=== PATIENT | female | born 1965 | race Caucasian/White ===

== ENCOUNTER → 2017-05-31 | Outpatient (CLI) | payer OTHER ==
[~2017-05-31] MED LIST: ARTIFICIAL TEAR15 M1 OPHTHALMIC; BENADRYL25 MG PO; BYSTOLIC 5 MG5 M1 PO; HYDROCHLOROTH12.5 M1 PO; HYDROCODON-ACE1 EAC7 PO; IBUPROFEN 800800 M1 PO; MINOCIN100 MG PO; NORCO 5-325 TA1 EACH PO; PREDNISONE 10 M10 MG PO; TESSALON PERLE100 MG PO
== END ==
LOC: M.ULTRA 05-22 16:43
DX: K76.0 Fatty (change of) liver, not elsewhere classified (principal); N64.4 Mastodynia; N28.1 Cyst of kidney, acquired; R92.8 Other abnormal and inconclusive findings on diagnostic imaging of breast; Z78.0 Asymptomatic menopausal state; Z90.49 Acquired absence of other specified parts of digestive tract

== ENCOUNTER 2017-10-19 08:14 | Inpatient (IN) | payer OTHER ==
[~2017-10-19] VITALS: Ht 157.5 cm; Wt 74.8 kg
[~2017-10-19 08:14] MED LIST changes: -ARTIFICIAL TEAR15 M1 OPHTHALMIC; -BENADRYL25 MG PO; -HYDROCODON-ACE1 EAC7 PO; -IBUPROFEN 800800 M1 PO; -MINOCIN100 MG PO; -PREDNISONE 10 M10 MG PO
[2017-10-19 08:18] VITALS: BP 139/56
[2017-10-19 10:04] LABS: ABSOLUTE BASOPHILS 0.1 thou/uL (0.0-0.2); ABSOLUTE EOSINOPHILS 0.2 thou/uL (0.0-0.7); ABSOLUTE LYMPHOCYTES 1.8 thou/uL (0.8-5.3); ABSOLUTE MONOCYTES 0.7 thou/uL (0.0-1.2); ABSOLUTE NEUTROPHILS 7.6 thou/uL (1.6-8.1); BASOPHILS 0.7 %; EOSINOPHILS 2.2 %; HEMATOCRIT 45.3 % (37.0-47.0); HEMOGLOBIN 15.5 gm/dL (12.0-15.0); MCH 29.7 pg (26.0-34.0); MCHC 34.3 g/dL (28.0-37.0); MCV 86.4 fL (80.0-100.0); MONOCYTES 6.6 %; MPV 8.3 fl. (7.2-11.1); NUCLEATED RBCS 0 /100WBC; PLATELET COUNT* 239 thou/uL (150-400); POLYS 73.5 %; RBC 5.24 mil/uL (4.20-5.00); RDW-CV 13.3 % (10.5-14.5); WBC 10.4 thou/uL (4.0-11.0)
[2017-10-19 10:22] LABS: CALCIUM 9.6 mg/dL (8.5-10.1); CREATININE 0.9 mg/dL (0.6-1.3); POTASSIUM 3.3 mmol/L (3.5-5.1)
[2017-10-19 10:27] LABS: ALBUMIN 4.8 g/dL (3.4-5.0); TOTAL BILIRUBIN 0.7 mg/dL (<0.1-1.0); TOTAL PROTEIN 8.1 g/dL (6.4-8.2)
[2017-10-19 10:59] VITALS: BP 131/63
[2017-10-19 13:36] LABS: CALCIUM 9.5 mg/dL (8.5-10.1); CREATININE 1.1 mg/dL (0.6-1.3); MAGNESIUM 1.5 mg/dL (1.8-2.4); POTASSIUM 3.2 mmol/L (3.5-5.1)
[2017-10-19 15:45] VITALS: BP 138/69
[2017-10-19 21:00] VITALS: BP 129/63
[2017-10-19 23:07] LABS: HEPATITIS B SURFACE AG Negative (Negative)
[2017-10-20] VITALS: BP 147/75
[2017-10-20 03:31] VITALS: BP 128/70
[2017-10-20 04:42] LABS: HEMATOCRIT 39.4 % (37.0-47.0); MCH 29.5 pg (26.0-34.0); MCHC 34.2 g/dL (28.0-37.0); MCV 86.3 fL (80.0-100.0); MPV 8.9 fl. (7.2-11.1); RBC 4.57 mil/uL (4.20-5.00); RDW-CV 13.4 % (10.5-14.5)
[2017-10-20 04:47] LABS: HEMOGLOBIN 13.5 gm/dL (12.0-15.0)
[2017-10-20 06:55] LABS: ALBUMIN 3.6 g/dL (3.4-5.0); CALCIUM 8.5 mg/dL (8.5-10.1); CREATININE 0.8 mg/dL (0.6-1.3); MAGNESIUM 1.2 mg/dL (1.8-2.4); POTASSIUM 3.5 mmol/L (3.5-5.1); TOTAL BILIRUBIN 0.7 mg/dL (<0.1-1.0); TOTAL PROTEIN 6.2 g/dL (6.4-8.2)
[2017-10-20 08:00] VITALS: BP 139/71
--- NOTE | 2017-10-20 10:45 | CON ---
[address] [address] CONSULTATION Name: SANDER PIEDRA Room: [address] ADM IN M.R.#: [id number] Admission: 10/19/17 Attend Phys: Julio Cesar Jesus, Discharge: Date of : 69 Report #: [id number] THIS REPORT FOR: //name// CC: Thao Villalpando Julio Cesar Jesus DATE OF SERVICE: 10/19/2017 TYPE OF REPORT: Infectious disease consultation ATTENDING PHYSICIAN: Julio Cesar Jesus M.D. REASON FOR EVALUATION: Periorbital cellulitis. HISTORY OF PRESENT ILLNESS: Chart reviewed, the patient examined. This 52-year-old woman without significant medical history, who woke middle of the night with complaints of discomfort in her right eye. She did rub it because it "felt weird." She has looked in the mirror and noted there were some periorbital swelling. She does describe some degree of discomfort and now has a burning pain, which she in part attributes to the marked discomfort. She was evaluated and recommended heat and ice alternating, continued to progress to the point where she has her eye swollen shut. It is ____ she has any fevers. She did admit to some kind of chills and perhaps sweats. Denies pulmonary or gastrointestinal related complaints. She was given a variety of things in the Emergency Room including epinephrine, corticosteroids, Benadryl. She was started empirically on therapy with vancomycin and ceftriaxone. ALLERGIES: To PENICILLIN, which causes urticaria; SULFA, causes urticaria; and LATEX. CURRENT MEDICATIONS: Include vancomycin, ceftriaxone, enoxaparin, hydrochlorothiazide. PAST MEDICAL HISTORY: Includes hypertension, hyperlipidemia and lower extremity edema. SOCIAL HISTORY: Nonsmoker. No ethanol. FAMILY HISTORY: Noncontributory. REVIEW OF SYSTEMS: As above. PHYSICAL EXAMINATION: GENERAL: She is alert, cooperative and appropriate. She appears generally well nourished. She is not in significant distress. VITAL SIGNS: Temperature 97.1, pulse 90, respirations 16 [place] [address] CONSULTATION Name: DOROTHEASANDER Room: [address] IN [facility]#: [id number] Admission: 10/19/17 Attend Phys: Julio Cesar Jesus, Discharge: Date of : 69 Report #: [id number] 131/63. SKIN: Warm and dry. No rashes. HEENT: Remarkable for marked periorbital edema. She does have some contused areas, particularly the upper eyelid, maybe indicative of hemolytic type strep infection. This extends several centimeters around the extent of her eye, is quite tender. There is no evident fluctuance. No oral issues or dental issues. NECK: Supple. LUNGS: Clear to auscultation. HEART: Regular. I do not appreciate any murmur. ABDOMEN: Soft, nontender and nondistended. EXTREMITIES: No cyanosis. GENITOURINARY: Deferred. RECTAL: Deferred. LABORATORY DATA: Lactic acid elevated at 4.7. Electrolytes: Sodium 139, potassium 3.2, chloride 101, bicarbonate 26, BUN and creatinine 15 and 1.1 and glucose of 198. Estimated GFR of 53. Liver functions are elevated as well with ALT of 94 and AST of 56. CBC: White count of 10.4, H and H 15.5 and 45.3 and platelets of 239. RADIOLOGICAL DATA: CT of the facial bones showed periorbital eyelid and facial soft tissue swelling with extension to the frontal region, left maxilla and no distinct loculated fluid collection. ASSESSMENT: ____ skin and soft tissue infection with cellulitis. At this point, would continue empiric antistaphylococcal and streptococcal therapy. Can exclude an intermittent injury such as puncture or bug bite, etc., presumed that lack of toxicity is certainly favorable and noted she did not really respond to all the treatment for hypersensitivity type reaction, must be somewhat unusual given the unilateral aspect, more of a localized. Continue some warm moist heat. Discussed with the patient's spouse. <ELECTRONICALLY SIGNED> By: Paresh Mckeon MD 10/20/17 1045 1429 [id number] Mckeon MD /nt
[2017-10-20 15:49] VITALS: BP 135/77
[2017-10-20 20:15] VITALS: BP 143/61
[2017-10-21 00:14] VITALS: BP 147/61
[2017-10-21 04:09] VITALS: BP 149/79
[2017-10-21 04:50] LABS: HEMATOCRIT 38.3 % (37.0-47.0); MCH 29.7 pg (26.0-34.0); MCHC 34.1 g/dL (28.0-37.0); MCV 87.3 fL (80.0-100.0); RBC 4.38 mil/uL (4.20-5.00); RDW-CV 13.8 % (10.5-14.5)
[2017-10-21 05:00] LABS: ALBUMIN 3.3 g/dL (3.4-5.0); CALCIUM 8.3 mg/dL (8.5-10.1); CREATININE 0.8 mg/dL (0.6-1.3); MAGNESIUM 1.8 mg/dL (1.8-2.4); POTASSIUM 3.8 mmol/L (3.5-5.1); TOTAL BILIRUBIN 0.6 mg/dL (<0.1-1.0); TOTAL PROTEIN 5.9 g/dL (6.4-8.2)
[2017-10-21 10:06] VITALS: BP 139/70; BP 95/46
[2017-10-21 16:05] VITALS: BP 150/77
[2017-10-21 20:50] VITALS: BP 145/68
[2017-10-22 04:00] VITALS: BP 137/70
[2017-10-22 08:00] VITALS: BP 144/57
[2017-10-22 12:53] LABS: URINE BILIRUBIN NEGATIVE (Negative); URINE BLOOD NEGATIVE (Negative); URINE CLARITY CLEAR; URINE COLOR YELLOW; URINE GLUCOSE-RANDOM NEGATIVE (Negative); URINE KETONES NEGATIVE (Negative); URINE LEUKOCYTES-REFLEX NEGATIVE (Negative); URINE NITRITE-REFLEX NEGATIVE (Negative); URINE PROTEIN NEGATIVE (Negative); URINE UROBILINOGEN 0.2 E.U./dl (0.2-1.0)
[2017-10-22 16:13] LABS: IgA 80 mg/dL (87-352); IgG 590 mg/dL (700-1600); IgM 52 mg/dL (26-217)
[2017-10-22 16:39] VITALS: BP 136/59
[2017-10-22 20:00] VITALS: BP 134/67
[2017-10-23 15:43] VITALS: BP 155/71
[2017-10-24] MEDS ORDERED: HYDROCODON-ACE1 EAC7 PO (11:23)
[2017-10-24] MEDS ORDERED: PREDNISONE 10 M10 MG PO (11:23)
--- NOTE | 2017-10-24 12:07 | EKG ---
[place] [address] ELECTROCARDIOGRAM REPORT Name: SANDER PIEDRA Room: [address] ADM IN .R.#: [id number] Admission: 10/19/17 Attend Phys: Julio Cesar Jesus, Discharge: Date of : 69 Report #: [id number] THIS REPORT FOR: //name// [facility] Test Date: 2017-10-24 Test Time: 09:25:24 Pat Name: SANDER PIEDRA Department: Room: [address] Gender: F Trouble Clerk: : 1965 Requested By: Brannon Hooper Order Number: [id number] MD: Walter Tucker Measurements Intervals [place] Rate: 47 P: 27 [place]: 131 QRS: 22 QRSD: 96 T: 28 QT: 482 QTc: 427 Interpretive Statements Sinus bradycardia Abnormal inferior Q waves Compared to ECG 07/15/2008 09:35:13 Sinus tachycardia no longer present Electronically Signed On 10-24-2017 12:07:05 CDT by Walter Tucker [email or web address] <ELECTRONICALLY SIGNED> By: Walter Tucker MD, [facility] 10/24/17 1207 4 4 Walter Tucker MD, FAC /EPI
[2017-10-24] MEDS ORDERED: BENADRYL25 MG PO (14:06)
[2017-10-24] MEDS ORDERED: IBUPROFEN 800800 M1 PO (14:10)
[2017-10-24] MEDS ORDERED: ARTIFICIAL TEAR15 M1 OPHTHALMIC (14:15)
[2017-10-24] MEDS ORDERED: MINOCIN100 MG PO (14:16)
[2017-10-24 14:23] VITALS: BP 155/71
[2017-10-24 14:46] VITALS: BP 155/71
[2017-10-24 16:59] VITALS: BP 155/71
== END 2017-10-24 15:00 | disposition home or self-care (01) | DRG 603 ==
LOC: M.ERS 08:14 → M.ORTHSURG 09:50 → M.TBA-ER 09:50 → M.ORTHSURG 11:05
PROVIDERS: Personal Emergency Response Attendant; Specialist; ADMIT Family Medicine
DX: L03.213 Periorbital cellulitis (principal); E87.2 Acidosis; R65.10 Systemic inflammatory response syndrome (SIRS) of non-infectious origin without acute organ dysfunction; I10 Essential (primary) hypertension; E78.5 Hyperlipidemia, unspecified; E87.6 Hypokalemia; E66.9 Obesity, unspecified; E83.42 Hypomagnesemia; T38.0X5A Adverse effect of glucocorticoids and synthetic analogues, initial encounter; Y92.89 Other specified places as the place of occurrence of the external cause; Z23 Encounter for immunization; Z68.30 Body mass index [BMI] 30.0-30.9, adult; Z79.899 Other long term (current) drug therapy; Z88.0 Allergy status to penicillin; Z88.2 Allergy status to sulfonamides; Z91.040 Latex allergy status

== ENCOUNTER 2018-08-21 18:34 | Emergency (ER) | payer OTHER ==
[~2018-08-21] VITALS: Ht 157.5 cm; Wt 74.8 kg
[~2018-08-21 18:34] MED LIST changes: +ARTIFICIAL TEAR15 M1 OPHTHALMIC; +BENADRYL25 MG PO; +HYDROCODON-ACE1 EAC7 PO; +IBUPROFEN 800800 M1 PO; +MINOCIN100 MG PO; +PREDNISONE 10 M10 MG PO
[2018-08-21] MEDS ORDERED: KLOR-CON 1010 MEQ PO (18:46)
[2018-08-21] MEDS ORDERED: AUGMENTIN 875-1 EACH PO (18:46)
[2018-08-21 18:59] LABS: ABSOLUTE BASOPHILS 0.1 thou/uL (0.0-0.2); ABSOLUTE EOSINOPHILS 0.4 thou/uL (0.0-0.7); ABSOLUTE MONOCYTES 0.7 thou/uL (0.0-1.2); ABSOLUTE NEUTROPHILS 4.7 thou/uL (1.6-8.1); BASOPHILS 1.1 %; HEMATOCRIT 41.7 % (37.0-47.0); HEMOGLOBIN 14.5 gm/dL (12.0-15.0); LYMPHOCYTES 33.9 %; MCH 30.1 pg (26.0-34.0); MCHC 34.7 g/dL (28.0-37.0); MCV 86.5 fL (80.0-100.0); MONOCYTES 7.9 %; MPV 8.5 fl. (7.2-11.1); NUCLEATED RBCS 0 /100WBC; PLATELET COUNT* 226 thou/uL (150-400); POLYS 53.1 %; RBC 4.82 mil/uL (4.20-5.00); RDW-CV 13.3 % (10.5-14.5); WBC 8.8 thou/uL (4.0-11.0)
[2018-08-21 19:07] LABS: ANION GAP 8 mmol/L (7-16); BUN 14 mg/dL (7-18); CALCIUM 9.3 mg/dL (8.5-10.1); CHLORIDE 104 mmol/L (98-107); CO2 30 mmol/L (21-32); CREATININE 0.7 mg/dL (0.6-1.3); GLUCOSE 109 mg/dL (70-99); POTASSIUM 4.5 mmol/L (3.5-5.1); SODIUM 142 mmol/L (136-145)
[2018-08-21 19:19] LABS: APTT 21.8 Seconds (25.0-31.3); INR 0.9; PROTIME 9.4 Seconds (9.20-11.50)
[2018-08-21 19:20] LABS: ALBUMIN 3.9 g/dL (3.4-5.0); ALKALINE PHOSPHATASE 80 U/L (46-116); CK-MB MASS 1.3 ng/mL (<0.5-3.6); LIPASE 543 U/L (73-393); MAGNESIUM 1.8 mg/dL (1.8-2.4); NT-PRO BRAIN NAT PEPTIDE 150 pg/mL (<300); SGOT 39 U/L (15-37); SGPT 92 U/L (30-65); TOTAL BILIRUBIN 0.2 mg/dL (<0.1-1.0); TOTAL PROTEIN 6.8 g/dL (6.4-8.2); TROPONIN-I LEVEL <0.06 ng/mL (<0.06)
[2018-08-21] MEDS ORDERED: VALIUM2 MG PO (22:24)
[2018-08-21 23:18] VITALS: BP 115/69
--- NOTE | 2018-08-22 17:11 | EKG ---
[place] [address] ELECTROCARDIOGRAM REPORT Name: SANDER PIEDRA Room: [facility]#: [id number] Admission: 08/21/18 Attend Phys: Discharge: 08/21/18 Date of : 69 Report #: [id number] THIS REPORT FOR: //name// [facility] ED Test Date: 2018-08-21 Test Time: 18:40:35 Pat Name: SANDER PIEDRA Department: Room: Gender: F Hair Clipper Power: [facility] : 1965 Requested By: Raj Bonilla Order Number: [id number] MD: Cristopher Walker Measurements Intervals [place] Rate: 62 P: -1 [place]: 149 QRS: 2 QRSD: 78 T: 9 QT: 420 QTc: 427 Interpretive Statements Sinus rhythm Low voltage, precordial leads Abnormal R-wave progression, early transition Compared to ECG 10/24/2017 09:25:24 Low QRS voltage now present Sinus bradycardia no longer present Inferior Q waves no longer present Q waves no longer present Electronically Signed On 08-22-2018 17:11:39 CDT by Cristopher Walker [email or web address] <ELECTRONICALLY SIGNED> By: Cristopher Walker MD, FACC 08/22/18 1711 1840 1840 Cristopher Walker MD, FAC /EPI
== END 2018-08-21 23:18 | disposition home or self-care (01) ==
LOC: M.ERS 18:34
PROVIDERS: Family Medicine
DX: K85.90 Acute pancreatitis without necrosis or infection, unspecified (principal); R42 Dizziness and giddiness; E78.5 Hyperlipidemia, unspecified; I10 Essential (primary) hypertension; Z91.040 Latex allergy status; Z88.2 Allergy status to sulfonamides; Z88.0 Allergy status to penicillin; Z90.49 Acquired absence of other specified parts of digestive tract